=== PATIENT | female | born 1985 | race Two or more races ===

== ENCOUNTER 2017-05-30 21:33 | Emergency (ER) | payer OTHER ==
[2017-05-30 21:41] VITALS: BP 137/86; PULSE 104; TEMP 98.1; BMI 27.8
--- NOTE | 2017-05-30 21:44 | PDOC ---
Rapid Medical Evaluation Chief Complaint: Pain Time Seen by Provider: 05/30/17 21:40 Medical Evaluation: Allergies Allergy/AdvReac Type Severity Reaction Status Date / Time iodine [Iodine] Allergy Verified 09/29/12 22:48 shrimp Allergy Intermediate Rash Uncoded 09/29/12 22:48 Vital Signs Temp Pulse Resp BP Pulse Ox 98.1 F 104 H 18 137/86 97 05/30/17 21:38 05/30/17 21:38 05/30/17 21:38 05/30/17 21:38 05/30/17 21:38 05/30/17 21:42 I have performed a brief in-person evaluation of this patient. The patient presents with a chief complaint of:lt suprapubic pain, currently menstrating Pertinent physical exam findings: vss, I have ordered the following:ua, hcg , ur cx The patient will proceed to the ED for further evaluation.
[2017-05-30 21:59] LABS: URINE APPEARANCE SLCLOUDY; URINE BILIRUBIN NEGATIVE (NEGATIVE); URINE BLOOD NEGATIVE (NEGATIVE); URINE COLOR YELLOW; URINE GLUCOSE (UA) NEGATIVE (NEGATIVE); URINE KETONE NEGATIVE (NEGATIVE); URINE NITRITE NEGATIVE (NEGATIVE); URINE PROTEIN NEGATIVE (NEGATIVE); URINE UROBILINOGEN NEGATIVE mg/dL (0.2-1.0)
--- NOTE | 2017-05-30 23:53 | PDOC ---
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 She reports that her abdominal pain ranges from mild to moderate, without radiation or modifying factors. She notes that she thinks it may be a UTI. The patient denies chest pain, shortness of breath, headache and dizziness. Denies fever, chills, nausea, vomit, diarrhea and constipation. Denies dysuria, frequency, urgency and hematuria. LMP: Currently Allergies: Iodine, shrimp Past surgical history: None reported Social history: No alcohol, tobacco or drug use reported <Papa Blunt - Last Filed: 05/30/17 23:55> <Pamela Mckeon - Last Filed: 05/31/17 03:24> - General Chief Complaint: Pain Stated Complaint: ASTHMA Time Seen by Provider: 05/30/17 21:40 Past History <Papa Blunt - Last Filed: 05/30/17 23:55> - Past Medical History Asthma: Yes Cancer: Yes (leukemia) COPD: No - Immunization History Td Vaccination: Yes - Suicide/Smoking/Psychosocial Hx Smoking Status: No Smoking History: Never smoked Have you smoked in the past 12 months: No Number of Cigarettes Smoked Daily: 0 Information on smoking cessation initiated: No Hx Alcohol Use: No Drug/Substance Use Hx: No Substance Use Type: None Hx Substance Use Treatment: No <Pamela Mckeon - Last Filed: 05/31/17 03:24> - Past Medical History Allergies/Adverse Reactions: Allergies Allergy/AdvReac Type Severity Reaction Status Date / Time iodine [Iodine] Allergy Verified 09/29/12 22:48 shrimp Allergy Intermediate Rash Uncoded 09/29/12 22:48 Home Medications: Ambulatory Orders Albuterol [Ventolin] 17 gm IH PRN PRN 12/01/11 Review of Systems - Review of Systems Able to Perform ROS?: Yes Comments:: 05/30/17 23:55 GENERAL/CONSTITUTIONAL: No fever or chills. No weakness. HEAD, EYES, EARS, NOSE AND THROAT: No change in vision. No ear pain or discharge. No sore throat.- CARDIOVASCULAR: No chest pain or shortness of breath RESPIRATORY: No cough, wheezing, or hemoptysis. GASTROINTESTINAL: (+) Epigastric pain, abdominal bloating and left lower quadrant pain. No nausea, vomiting, diarrhea or constipation. GENITOURINARY: No dysuria, frequency, or change in urination. MUSCULOSKELETAL: No joint or muscle swelling or pain. No neck or back pain. SKIN: No rash NEUROLOGIC: No headache, vertigo, loss of consciousness, or change in strength/ sensation. ENDOCRINE: No increased thirst. No abnormal weight change HEMATOLOGIC/LYMPHATIC: No anemia, easy bleeding, or history of blood clots. ALLERGIC/IMMUNOLOGIC: No hives or skin allergy. <Papa Blunt - Last Filed: 05/30/17 23:55> *Physical Exam - Vital Signs Last Vital Signs Temp Pulse Resp BP Pulse Ox 98.1 F 104 H 18 137/86 97 05/30/17 21:38 05/30/17 21:38 05/30/17 21:38 05/30/17 21:38 05/30/17 21:38 - Physical Exam Comments: 05/30/17 23:56 GENERAL: Awake, alert, and fully oriented, in no acute distress HEAD: No signs of trauma, normocephalic, atraumatic EYES: PERRLA, EOMI, sclera anicteric, conjunctiva clear ENT: Auricles normal inspection, hearing grossly normal, nares patent, oropharynx clear without exudates. Moist mucosa NECK: Normal ROM, supple, no lymphadenopathy, JVD, or masses LUNGS: No distress, speaks full sentences, clear to auscultation bilaterally HEART: Regular rate and rhythm, normal S1 and S2, no murmurs, rubs or gallops, peripheral pulses normal and equal bilaterally. ABDOMEN: Soft, nontender, normoactive bowel sounds. No guarding, no rebound. No masses EXTREMITIES : Normal inspection, Normal range of motion, no edema. No clubbing or cyanosis. NEUROLOGICAL: Cranial nerves II through XII grossly intact. Normal speech, normal gait, no focal sensorimotor deficits SKIN: Warm, Dry, normal turgor, no rashes or lesions noted. <Papa Blunt - Last Filed: 05/30/17 23:55> - Vital Signs Last Vital Signs Temp Pulse Resp BP Pulse Ox 98.1 F 104 H 18 137/86 97 05/30/17 21:38 05/30/17 21:38 05/30/17 21:38 05/30/17 21:38 05/30/17 21:38 <Pamela Mckeon - Last Filed: 05/31/17 03:24> ED Treatment Course - ADDITIONAL ORDERS Additional order review: Laboratory Results 05/30/17 21:50 Urine Color Yellow Urine Appearance Slcloudy Urine pH 6.0 Ur Specific Jarrell 1.028 Urine Protein Negative Urine Glucose (UA) Negative Urine Ketones Negative Urine Blood Negative Urine Nitrite Negative Urine Bilirubin Negative Urine Urobilinogen Negative Urine HCG, Qual Negative <Papa Blunt - Last Filed: 05/30/17 23:55> - ADDITIONAL ORDERS Additional order review: Laboratory Results 05/30/17 21:50 Urine Color Yellow Urine Appearance Slcloudy Urine pH 6.0 Ur Specific Jarrell 1.028 Urine Protein Negative Urine Glucose (UA) Negative Urine Ketones Negative Urine Blood Negative Urine Nitrite Negative Urine Bilirubin Negative Urine Urobilinogen Negative Urine HCG, Qual Negative - RADIOLOGY Radiology Studies Ordered: Category Date Time Status TRANSVAGINAL ULTRASOUND US [US] Stat Ultrasound 05/30/17 22:20 Completed <Pamela Mckeon - Last Filed: 05/31/17 03:24> Medical Decision Making - Medical Decision Making 05/31/17 03:23 31-year-old female presents with left adnexal pain. No significant nausea, vomiting or diarrhea, fever or chills. Urinalysis is negative for any signs of UTI. test is negative. Pelvic ultrasound did not reveal any ovarian torsion, there are no masses Impression pelvic pain. Patient to follow-up with her orthophotography technician <Pamela Mckeon - Last Filed: 05/31/17 03:24> *DC/Admit/Observation/Transfer - Attestations Scribe Attestion: 05/30/17 23:56 Documentation prepared by Papa Blunt, acting as medical doctor md for Pamela Mckeon MD. <Papa Blunt - Last Filed: 05/30/17 23:55> <Pamela Mckeon - Last Filed: 05/31/17 03:24> Diagnosis at time of Disposition: Pelvic pain - Discharge Dispostion Disposition: HOME Condition at time of disposition: Stable - Referrals Referrals: Ricardo Anders MD [Primary Care Provider] - - Patient Instructions Printed Discharge Instructions: DI for Pelvic Pain Additional Instructions: please followup with your orthophotography technician if you have any further symptoms - Post Discharge Activity
[2017-05-31 09:57] LABS: URINE LEUK ESTERASE TRACE (NEGATIVE)
[2017-05-31 11:11] LABS: URINE BACTERIA MODERATE /hpf (NEGATIVE); URINE RBC 0-2 /hpf (0-3); URINE WBC 0-2 (0-5)
== END 2017-05-31 00:31 | disposition home or self-care (01) ==
LOC: JER 21:33
DX: R10.2 Pelvic and perineal pain (principal); J45.909 Unspecified asthma, uncomplicated; C95.91 Leukemia, unspecified, in remission
CPT/HCPCS: 76830-TC; 81003; 81015; 84703; 87086; 99281-25

== ENCOUNTER 2018-10-10 09:24 | Emergency (ER) | payer OTHER ==
[2018-10-10 09:36] VITALS: BP 119/66; PULSE 98; TEMP 98.8
--- NOTE | 2018-10-10 10:14 | PDOC ---
History of Present Illness - General Chief Complaint: Pain Stated Complaint: ABD PAIN Time Seen by Provider: 10/10/18 10:10 History Source: Patient - History of Present Illness Timing/Duration: reports: constant Past History - Past Medical History Allergies/Adverse Reactions: Allergies Allergy/AdvReac Type Severity Reaction Status Date / Time iodine [Iodine] Allergy Verified 10/10/18 09:34 shrimp Allergy Intermediate Rash Uncoded 10/10/18 09:34 Home Medications: Ambulatory Orders Albuterol [Ventolin] 17 gm IH PRN PRN 12/01/11 Asthma: Yes Cancer: Yes (leukemia) COPD: No - Immunization History Td Vaccination: Yes - Suicide/Smoking/Psychosocial Hx Smoking Status: No Smoking History: Current every day smoker Have you smoked in the past 12 months: No Number of Cigarettes Smoked Daily: 4 Information on smoking cessation initiated: No Hx Alcohol Use: No Drug/Substance Use Hx: No Substance Use Type: None Hx Substance Use Treatment: No Review of Systems - Review of Systems Constitutional: No: Chills, Fever ABD/GI: Yes: Nausea, Vomiting. No: Constipated, Diarrhea : Yes: Flank Pain. No: Burning, Dysuria, Hematuria *Physical Exam - Vital Signs Last Vital Signs Temp Pulse Resp BP Pulse Ox 98.8 F 98 H 18 119/66 100 10/10/18 09:34 10/10/18 09:34 10/10/18 09:34 10/10/18 09:34 10/10/18 09:34 - Physical Exam General Appearance: Yes: Appropriately Dressed, Mild Distress HEENT: positive: Normal Voice Neck: positive: Supple Respiratory/Chest: negative: Respiratory Distress Gastrointestinal/Abdominal: positive: Normal Bowel Sounds, Tender (mostly to LLQ ), Soft. negative: Distended, Guarding, Rebound Musculoskeletal: positive: CVA Tenderness (L) Integumentary: positive: Dry, Warm Neurologic: positive: Fully Oriented, Alert, Normal Mood/Affect Medical Decision Making - Medical Decision Making 10/10/18 10:11 33 yo F, no sig hx, p/w L sided abd pain since yesterday. Describes pain as "like someone punching me", constant and 10/10 at its worse. Possibly worse w/ movement/ambulation. Also reports 1 e/o n/v yesterday. No dysuria, recent change in BM, vaginal discharge, f/c. No h/o renal stone. No recent trauma or obvious inciting factors. No h/o similar pain See exam R/o renal colic vs diverticulitis, less likely uti/pyelo Stable w/ sig ttp to LLQ and ? 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 Patient appears to have capacity and signed AMA form, as witnessed by ED staff. ED attending aware *DC/Admit/Observation/Transfer Diagnosis at time of Disposition: Patient left before treatment completed - Discharge Dispostion Disposition: AGAINST MEDICAL ADVICE Condition at time of disposition: Stable - Referrals Referrals: Ainsley Chung MD [Primary Care Provider] - - Patient Instructions Additional Instructions: You have signed out AGAINST MEDICAL ADVICE and was informed that you can return to ED at any time to continue evaluation - Post Discharge Activity
[2018-10-10] MEDS ORDERED: SODIUM CHLORIDE 1,000 ML IV STA (10:15)
[2018-10-10] MEDS ORDERED: KETOROLAC TROMETHAMINE 30 MG/1 ML VIAL IVPUSH ONE (10:15)
--- NOTE | 2018-10-10 11:01 | PDOC ---
*Physical Exam - Vital Signs Last Vital Signs Temp Pulse Resp BP Pulse Ox 98.8 F 98 H 18 119/66 100 10/10/18 09:34 10/10/18 09:34 10/10/18 09:34 10/10/18 09:34 10/10/18 09:34 - Physical Exam Comments: 10/10/18 11:01 The patient was examined by [HANS James] under my direct supervision. I personally evaluated the patient. I concur with the above findings and the plan of care. *DC/Admit/Observation/Transfer Diagnosis at time of Disposition: Patient left before treatment completed - Discharge Dispostion Disposition: AGAINST MEDICAL ADVICE Condition at time of disposition: Stable - Referrals Referrals: Ainsley Chung MD [Primary Care Provider] - - Patient Instructions Additional Instructions: You have signed out AGAINST MEDICAL ADVICE and was informed that you can return to ED at any time to continue evaluation - Post Discharge Activity
== END 2018-10-10 11:03 | disposition left against medical advice (07) ==
LOC: JER 09:24
DX: R10.9 Unspecified abdominal pain (principal)
CPT/HCPCS: 99282-25